=== PATIENT | female | born 1960 | race Hispanic/Latino ===

== ENCOUNTER 2018-12-04 14:29 | Outpatient (CLI) | payer OTHER ==
--- NOTE | 2018-12-04 16:36 | XRay Report ---
FINAL REPORT EXAM: XR CHEST ROUTINE 2V HISTORY: Aleksandr's syndrome TECHNIQUE: AP, PA and lateral views of the chest Comparison: None FINDINGS: There is mild elevation the right hemidiaphragm. There is no evidence of focal infiltrate, pneumothorax or pleural fluid collection. The cardiomediastinal silhouette is normal in appearance. The bony structures are notable for prominent kyphosis of the thoracic spine IMPRESSION: 1. No evidence of an acute pulmonary process. If further imaging is required, CT chest may be helpful.
== END 2018-12-04 14:30 | disposition home or self-care (01) ==
LOC: XRAY 14:29
PROVIDERS: ATTEND Psychiatry & Neurology Neurology
DX: G90.2 Horner's syndrome (principal); Z87.891 Personal history of nicotine dependence
CPT/HCPCS: 71046

== ENCOUNTER 2019-11-03 08:32 | Outpatient (CLI) | payer OTHER ==
--- NOTE | 2019-11-03 10:16 | Ultrasound Report ---
TRANSABDOMINAL PELVIC AND TRANSVAGINAL ULTRASOUND HISTORY: DUB COMPARISON: None. TECHNIQUE: Routine transabdominal and transvaginal pelvic ultrasound performed. FINDINGS: TRANSABDOMINAL PELVIC ULTRASOUND: Uterus: Normal size and echogenicity without uterine mass. Endometrium: Not well imaged. Ovaries: Not well demonstrated on the transabdominal scan. Additional findings: Transvaginal exam was performed for better delineation of the endometrium and ov [place]. TRANSVAGINAL PELVIC ULTRASOUND: Uterus: Normal size and echogenicity. No masses. Uterus measures 5.9 x 2.3 x 3.5 cm. Endometrium: Mild thickening measuring 4.7 mm. Right Ovary: Normal size, blood flow and appearance measuring 2.3 x 1.3 x 2.2 cm. Left Ovary: Not well demonstrated. A 1.2 cm calcification of the left adnexa produces dense shadowing . Additional findings: None. IMPRESSION: 1. Mild endometrial thickening. No uterine fibroid or mass. 2. Normal right ovary. 3. Left ovary not confidently imaged. 4. A 1.2 cm calcification of the left adnexa may be within the ovary or separate from the ovary. Derm oid cyst of the ovary is a possibility. Signer Name: Darnell Steiner MD Signed: 11/03/2019 10:12 AM Workstation Name: [id number]
== END 2019-11-03 08:33 | disposition home or self-care (01) ==
LOC: SPVWC 08:32
PROVIDERS: ATTEND Family Medicine
DX: N93.8 Other specified abnormal uterine and vaginal bleeding (principal)
CPT/HCPCS: 76830; 76856